=== PATIENT | female | born 1975 | race Asian ===

== ENCOUNTER 2018-08-07 07:17 | Inpatient (IN) | payer SELFPAY ==
[~2018-08-07] VITALS: Ht 160 cm; Wt 68.0 kg
[2018-08-07] MEDS ORDERED: LR 1,000 ML IV ONE (07:24)
[2018-08-07] MEDS ORDERED: LR 1,000 ML IV SCH (07:24)
[2018-08-07] MEDS ORDERED: OXYTOCIN/0.9 % SODIUM CHLORIDE 1,000 ML IV SCH (07:24)
[2018-08-07] MEDS ORDERED: NALBUPHINE HCL 10 MG/ML AMP ONE (07:28)
[2018-08-07] MEDS ORDERED: TERBUTALINE SULFATE 1 MG/ML VIAL SUBCUT ONE (07:30)
[2018-08-07] MEDS ORDERED: NALBUPHINE HCL 10 MG/ML AMP IVP PRN (07:30)
[2018-08-07] MEDS ORDERED: OXYTOCIN 10 UNIT/ML VIAL ONE (07:48)
[2018-08-07] MEDS ORDERED: OXYTOCIN 10 UNIT/ML VIAL IM ONE (08:00)
[2018-08-07 08:12] LABS: BASOPHILS % (AUTO) 0.3 % (0.0-2.0); EOSINOPHILS % (AUTO) 0.2 % (0.0-4.0); HEMATOCRIT 35.5 % (36-48); HEMOGLOBIN 12.1 g/dL (12.0-16.0); LYMPHOCYTES # (AUTO) 1.3 K/uL (1.0-5.5); MEAN CORPUSCULAR HEMOGLOBIN 33 pg (27-31); MEAN CORPUSCULAR HGB CONC 34 % (32-36); MEAN CORPUSCULAR VOLUME 96 fL (79.0-98.0); MONOCYTES # (AUTO) 0.6 K/uL (0.0-1.0); NEUTROPHILS % (AUTO) 80.5 % (40.0-70.0); PLATELET COUNT (AUTO) 226 K/uL (130-430); RED BLOOD CELL COUNT(AUTO) 3.69 MIL/uL (4.2-6.2); RED CELL DISTRIBUTION WIDTH 12.8 % (9.0-15.0); WHITE BLOOD COUNT (AUTO) 9.9 K/uL (4.8-10.8)
[2018-08-07] MEDS ORDERED: HYDROcodone/ACETAMIN 5-325 MG TAB (NORCO/ VICODIN) PO PRN (08:30)
[2018-08-07] MEDS ORDERED: OXYTOCIN/0.9 % SODIUM CHLORIDE 1,000 ML IV ONE (08:58)
[2018-08-07] MEDS ORDERED: LANOLIN 7 GM OINT. TP PRN (09:00)
[2018-08-07] MEDS ORDERED: ANUSOL 1 EA SUPP.RECT (PREPARATION H) RC PRN (09:00)
[2018-08-07] MEDS ORDERED: HYDROCORTISONE 0.5%, 28.35 GM TOPICAL CREAM TP PRN (09:00)
[2018-08-07] MEDS ORDERED: DOCUSATE SODIUM 100 MG CAPSULE PO PRN (09:00)
[2018-08-07] MEDS ORDERED: METHYLERGONOVINE MALEATE 0.2 MG TABLET PO PRN (09:00)
[2018-08-07] MEDS ORDERED: WITCH HAZEL LEAF 1 MED.PAD MED.PAD TP PRN (09:00)
[2018-08-07] MEDS ORDERED: SENNOSIDES/DOCUSATE SODIUM 1 TAB TABLET(SENOKOT-S) PO PRN (09:00)
[2018-08-07] MEDS: IBUPROFEN 600 MG TABLET PO SCH ×2 (12:30→18:05)
[2018-08-08] MEDS: IBUPROFEN 600 MG TABLET PO SCH ×5 (00:09→23:58)
[2018-08-08 06:09] LABS: HEMATOCRIT 29.4 % (36-48); HEMOGLOBIN 9.6 g/dL (12.0-16.0)
[2018-08-08] MEDS: OXYCODONE/ACETAMINOPHEN 5-325 TABLET PO PRN ×2 (09:08→15:35)
[2018-08-08] MEDS ORDERED: LIDOCAINE PF 1% 30ML(POUR BTL) INJ ONE (10:42)
[2018-08-09] MEDS: IBUPROFEN 600 MG TABLET PO SCH ×2 (06:03→12:09)
[2018-08-09 12:11] VITALS: BP_SYST 126
== END 2018-08-09 16:20 | disposition home or self-care (01) | DRG 775 ==
LOC: SPU 07:17 → OBSVTOIN 07:17 → SPU 12:59
PROVIDERS: ADMIT Obstetrics & Gynecology; ATTEND Obstetrics & Gynecology
PROC: 10E0XZZ Delivery of Products of Conception, External Approach (ICD-10-PCS; principal; 2018-08-07)
PROC: 0W8NXZZ Division of Female Perineum, External Approach (ICD-10-PCS; 2018-08-07)
DX: O80 Encounter for full-term uncomplicated delivery (principal); Z37.0 Single live birth; Z3A.40 40 weeks gestation of pregnancy
CPT/HCPCS: 36415; 85018-TC; 85025; 86886; 86900; 86901; J2001; J2300; J2590